=== PATIENT | female | born 2000 | race Caucasian/White ===

== ENCOUNTER 2019-03-15 11:13 | Day surgery (SDC) | payer BC ==
[~2019-03-15] VITALS: Ht 160 cm; Wt 68.6 kg
[2019-03-15] MEDS ORDERED: [UNRECOGNIZED DRUG - OTHER] PO (11:28)
[2019-03-15 11:29] VITALS: BP 142/70
[2019-03-15 12:30] VITALS: BP 138/72
== END 2019-03-15 12:40 | disposition home or self-care (01) ==
LOC: SSTAY O 11:13
PROVIDERS: ATTEND Radiology Diagnostic Radiology
DX: M71.371 Other bursal cyst, right ankle and foot (principal); M79.671 Pain in right foot
CPT/HCPCS: 10160; 76942